=== PATIENT | female | born 1985 ===

== ENCOUNTER 2016-10-22 19:34 | Emergency (ER) | payer MEDICAID ==
[2016-10-22 19:36] VITALS: BMI 23.0
[2016-10-22 19:56] VITALS: BP 107/68; PULSE 61; RESP 17; TEMP 97.9; O2SAT 100
[2016-10-22] MEDS ORDERED: Lactated Ringer's 1,000 ML in Lactated Ringer's 1,000 ML IV STA (20:40)
[2016-10-22 21:10] LABS: BASO # 0.1 K/uL (0.0-0.2); BASO % 0.9 % (0.0-2.0); EOS # 0.1 K/uL (0.0-0.7); EOS % 1.3 % (0.0-4.0); HEMATOCRIT 37.3 % (34.0-47.0); LYMPH # 2.6 K/uL (1.0-4.3); LYMPH % 26.2 % (20.0-40.0); MEAN CELL VOLUME 87.3 fl (81.0-99.0); MEAN CORPUSCULAR HGB CONC 33.2 g/dL (33.0-37.0); MEAN PLATELET VOLUME 8.8 fl (7.2-11.7); MONO # 0.6 K/uL (0.0-0.8); MONO % 6.4 % (0.0-10.0); NEUT # 6.6 K/uL (1.8-7.0); NEUT % 65.2 % (50.0-75.0); NRBC % 0.1 % (0.0-0.0); RED CELL DISTRIBUTION WIDTH 13.7 % (11.5-14.5); WHITE BLOOD COUNT 10.1 K/uL (4.8-10.8)
--- NOTE | 2016-10-22 21:30 | ED PDOC ---
HPI: Female Pain Time Seen by Provider: 10/22/16 20:03 Chief Complaint (Nursing): Abdominal Pain Chief Complaint (Provider): Dysuria/Frequency History Per: Patient History/Exam Limitations: no limitations Onset/Duration Of Symptoms: Days (x2) Current Symptoms Are (Timing): Still Present Severity: Moderate Associated Symptoms: Nausea, Other ("hot sweats", suprapubic and flank pain ( mild); no vomiting, diarrhea, vaginal discharge or bleeding) Additional Complaint(s): Emily Maravilla is a 31 year old female, with a past medical history inclusive of previous pyelonephritis and subsequent autoimmune hepatitis (requiring hospital admission), who presents to the ED on 10/22/16 for the evaluation of both dysuria and urinary frequency that she has experienced x2 days. Associated episodes of "hot sweats" and nausea also reported in addition to some suprapubic and b/l flank pain (mild). Denies outright fever, vomiting, diarrhea , vaginal discharge or bleeding as well as other current infections (cough/ rhinorrhea/rash). Has taken no medications for symptom relief prior to arrival. Of note, patient reports that her current symptoms are similar to those experienced at the time she had been diagnosed with pyelonephritis. PMD: Alexa Reina Past Medical History Reviewed: Historical Data, Nursing Documentation, Vital Signs Vital Signs: Last Vital Signs Temp 97.9 F 10/22/16 19:53 Pulse 61 10/22/16 19:53 Resp 17 10/22/16 19:53 BP 107/68 10/22/16 19:53 Pulse Ox 100 10/22/16 19:53 - Medical History PMH: Asthma (per old chart but pt denies), Gall Bladder Disease, Hepatitis ( autoimmune s/p pyelonephritis) Denies: Chronic Kidney Disease Other PMH: pyelonephritis - Surgical History Surgical History: (x2) - Family History Family History: States: Unknown Family Hx - Social History Current smoker - smoking cessation education provided: No Alcohol: None Drugs: Denies - Home Medications Home Medications: Ambulatory Orders Medication Instructions Recorded Cephalexin [cephalexin] 500 mg PO BID #14 cap 07/15/16 traMADol [Ultram] 50 mg PO Q6H PRN #15 tab 08/02/16 Ciprofloxacin HCl [Cipro] 250 mg PO BID #20 tab 10/22/16 Famotidine [Pepcid] 40 mg PO DAILY PRN #30 tab 10/22/16 Naproxen [Naprosyn] 1 tab PO BID PRN #60 tab 10/22/16 Ondansetron [Zofran] 4 mg PO Q8H PRN #30 tab 10/22/16 - Allergies Allergies/Adverse Reactions: Allergies Allergy/AdvReac Type Severity Reaction Status Date / Time No Known Allergies Allergy Verified 08/01/16 20:57 Review of Systems ROS Statement: Except As Marked, All Systems Reviewed And Found Negative Constitutional: Positive for: Sweats. Negative for: Fever ENT: Negative for: Nose Discharge Respiratory: Negative for: Cough Gastrointestinal: Positive for: Nausea, Abdominal Pain (suprapubic, b/l flank). Negative for: Vomiting, Diarrhea Genitourinary Female: Positive for: Dysuria, Frequency. Negative for: Vaginal Discharge, Vaginal Bleeding Skin: Negative for: Rash Physical Exam - Reviewed Nursing Documentation Reviewed: Yes Vital Signs Reviewed: Yes - Physical Exam Appears: Positive for: Well (well appearing), Non-toxic, In Acute Distress ( mild painful) Head Exam: Positive for: ATRAUMATIC, NORMOCEPHALIC Skin: Positive for: Normal Color, Warm, Dry Cardiovascular/Chest: Positive for: Regular Rate, Rhythm. Negative for: Murmur Respiratory: Positive for: Normal Breath Sounds. Negative for: Respiratory Distress Gastrointestinal/Abdominal: Positive for: Soft, Tenderness (mild suprapubic). Negative for: Mass, Guarding, Rebound Back: Positive for: Normal Inspection. Negative for: L CVA Tenderness, R CVA Tenderness Neurologic/Psych: Positive for: Alert, Oriented - Laboratory Results Result Diagrams: 10/22/16 20:55 10/22/16 20:55 - ECG O2 Sat by Pulse Oximetry: 100 (RA) Pulse Ox Interpretation: Normal Medical Decision Making Medical Decision Makin:03 Initial Impression: UTI Other differential diagnoses include but are not limited to cystitis, pyelonephritis Initial Plan: * US Abdomen, Complete * Labs * Lipase * PTT * PT * Upreg * Udip * Lactated Ringer's 1000ml at 1000mls/hr * Pepcid 20mg IVP * Toradol 30mg IV * Zofran 8mg IV * Reevaluation Udip is (+) for both blood and leukocyte esterase. Will send sample to lab for both urinalysis and culture. Reviewed previous charts. Pt has urine cultures with E Coli susceptible to all antibiotics. EXAM: US Abdomen Complete. CLINICAL HISTORY: 31 years old, female; Pain; Abdominal pain; Generalized; Additional info: Flank pain and h/o hepatitis TECHNIQUE: Real-time ultrasound of the abdomen (complete) with image documentation. EXAM DATE/TIME: 10/22/2016 9:29 PM COMPARISON: There are no prior studies for comparison. FINDINGS: Liver: Liver is unremarkable.There is hepatopedal flow in the main portal vein. Gallbladder: Gallbladder is incompletely distended with no stones, sludge or wall thickening.. Common bile duct: Common bile duct measures 2.6 mm in diameter. Pancreas: Pancreas is partially obscured by bowel gas. Visualized portion is unremarkable. Kidneys: Kidneys are unremarkable. Spleen: Spleen is unremarkable. Aorta: Visualized portions of the aorta and inferior vena cava are unremarkable. Inferior vena cava: See above. IMPRESSION: Limited evaluation of the gallbladder secondary to nonfasting complete distention; no acute solid visceral abnormality Patient was not tender over the gallbladder Thank you for allowing us to participate in the care of your patient. Dictated and Authenticated by: Sherrell Sparks MD 10/22/2016 11:50 PM Eastern Time ([place] & [place]) On reeval pt improved. DW pt findings and plan of care. Mandatory 48 hour follow up to reevaluate for improvement. Scribe Attestation: Documented by Marleen Hardy, acting as a scribe for Gely Munson MD. Provider Scribe Attestation: All medical record entries made by the Scribe were at my direction and personally dictated by me. I have reviewed the chart and agree that the record accurately reflects my personal performance of the history, physical exam, medical decision making, and the department course for this patient. I have also personally directed, reviewed, and agree with the discharge instructions and disposition. Disposition - Clinical Impression Clinical Impression: Cystitis Counseled Patient/Family Regarding: Studies Performed, Diagnosis, Need For Followup, Rx Given - Disposition Disposition: Routine/Home Disposition Time: 23:56 Condition: IMPROVED Additional Instructions: DRINK PLENTY OF HYDRATING FLUIDS AND REST SEE YOUR DOCTOR IN 48 HOURS FOR REEVALUATION. RETURN TO ER FOR WORSENING SYMPTOMS. Prescriptions: Ciprofloxacin HCl [Cipro] 250 mg PO BID #20 tab Naproxen [Naprosyn] 1 tab PO BID PRN #60 tab PRN Reason: Pain Famotidine [Pepcid] 40 mg PO DAILY PRN #30 tab PRN Reason: reflux Ondansetron [Zofran] 4 mg PO Q8H PRN #30 tab PRN Reason: Nausea/Vomiting Instructions: Urinary Tract Infection in Women (ED) Forms: [facility] ED School/Work Excuse
[2016-10-22 21:38] LABS: ALB/GLOB RATIO 1.4 (1.0-2.1); ALKALINE PHOSPHATASE 95 U/L (38-126); ALT/SGPT 72 U/L (9-52); AST/SGOT 52 U/L (14-36); BILIRUBIN,TOTAL 0.3 mg/dl (0.2-1.3); BLOOD UREA NITROGEN 18 mg/dl (7-17); CALCIUM 9.3 mg/dL (8.4-10.2); CARBON DIOXIDE 24 mmol/L (22-30); CHLORIDE 105 mmol/L (98-107); GFR AFRICAN-AMERICAN > 60; GLUCOSE,RANDOM 89 mg/dL (65-105); LIPASE 118 U/L (23-300); POTASSIUM 4.1 MMOL/L (3.6-5.0); SODIUM 137 mmol/l (132-148)
[2016-10-22 21:54] LABS: RBC URINE 20 /hpf (0-3); URINE BACTERIA OCC (<OCC); URINE BILIRUBIN NEGATIVE (NEGATIVE); URINE BLOOD MODERATE (NEGATIVE); URINE COLOR YELLOW (YELLOW); URINE GLUCOSE (UA) NEG (Normal); URINE KETONE NEGATIVE (NEGATIVE); URINE LEUKOCYTE ESTERASE LARGE Leu/uL (Negative); URINE PROTEIN NEGATIVE (NEGATIVE); URINE UROBILINOGEN 0.2-1.0 mg/dL (0.2-1.0); WBC URINE 253 /hpf (0-5)
[2016-10-22 21:56] LABS: PARTIAL THROMBOPLASTIN TIME 25.4 SECONDS (23.3-32.5)
[2016-10-22] MEDS ORDERED: Ciprofloxacin 400mg/200ml D5W 200 ML IV STA (22:07)
[2016-10-22] MEDS ORDERED: Ciprofloxacin 400mg/200ml D5W 200 ML IVPB ONE (22:37)
[2016-10-22] MEDS ORDERED: DiphenhydrAMINE 50 mg/ml Inj IVP STA (22:51)
[2016-10-22] MEDS ORDERED: Promethazine 25MG/50ML NS IVPB ONE (23:15)
--- NOTE | 2016-10-22 23:50 | US ---
EXAM: US Abdomen Complete. CLINICAL HISTORY: 31 years old, female; Pain; Abdominal pain; Generalized; Additional info: Flank pain and h/o hepatitis TECHNIQUE: Real-time ultrasound of the abdomen (complete) with image documentation. EXAM DATE/TIME: 10/22/2016 9:29 PM COMPARISON: There are no prior studies for comparison. FINDINGS: Liver: Liver is unremarkable.There is hepatopedal flow in the main portal vein. Gallbladder: Gallbladder is incompletely distended with no stones, sludge or wall thickening.. Common bile duct: Common bile duct measures 2.6 mm in diameter. Pancreas: Pancreas is partially obscured by bowel gas. Visualized portion is unremarkable. Kidneys: Kidneys are unremarkable. Spleen: Spleen is unremarkable. Aorta: Visualized portions of the aorta and inferior vena cava are unremarkable. Inferior vena cava: See above. IMPRESSION: Limited evaluation of the gallbladder secondary to nonfasting complete distention; no acute solid visceral abnormality Patient was not tender over the gallbladder
== END 2016-10-23 00:33 | disposition home or self-care (01) ==
LOC: H.ER 19:34
DX: N30.90 Cystitis, unspecified without hematuria (principal); J45.909 Unspecified asthma, uncomplicated

== ENCOUNTER 2017-01-14 21:28 | Emergency (ER) | payer MEDICAID ==
[2017-01-14 21:28] VITALS: BMI 23.0
[2017-01-14 21:36] VITALS: BP 115/63; PULSE 58; RESP 16; TEMP 98.3; O2SAT 100
--- NOTE | 2017-01-14 22:12 | ED PDOC ---
HPI: Abdomen Time Seen by Provider: 01/14/17 21:54 Chief Complaint (Nursing): Abdominal Pain Chief Complaint (Provider): abdominal cramps History Per: Patient History/Exam Limitations: no limitations Quality Of Discomfort: Cramping Associated Symptoms: Nausea Additional History Per: Patient Additional Complaint(s): 31 y/o female presents for eval of lower abdominal cramps x 3 days. Associated nausea. Patient states she was due for her period 01/11/17 but it has not yet come; took a test that was negative. Denies fever, headache, vomiting , cough, congestion, changes in bowel movements, dysuria, hematuria, vaginal bleeding/discharge. Past Medical History Reviewed: Historical Data, Nursing Documentation, Vital Signs Vital Signs: Last Vital Signs Temp 98.3 F 01/14/17 21:33 Pulse 58 L 01/14/17 21:33 Resp 16 01/14/17 21:33 BP 115/63 01/14/17 21:33 Pulse Ox 100 01/14/17 23:45 - Medical History PMH: Asthma (per old chart but pt denies), Gall Bladder Disease, Hepatitis ( autoimmune s/p pyelonephritis) Denies: Chronic Kidney Disease - Surgical History Surgical History: (x2) - Family History Family History: States: Unknown Family Hx - Home Medications Home Medications: Ambulatory Orders Medication Instructions Recorded Cephalexin [cephalexin] 500 mg PO BID #14 cap 07/15/16 traMADol [Ultram] 50 mg PO Q6H PRN #15 tab 08/02/16 Ciprofloxacin HCl [Cipro] 250 mg PO BID #20 tab 10/22/16 Famotidine [Pepcid] 40 mg PO DAILY PRN #30 tab 10/22/16 Naproxen [Naprosyn] 1 tab PO BID PRN #60 tab 10/22/16 Ondansetron [Zofran] 4 mg PO Q8H PRN #30 tab 10/22/16 Naproxen [Naprosyn] 500 mg PO Q12 PRN #20 tablet 01/15/17 - Allergies Allergies/Adverse Reactions: Allergies Allergy/AdvReac Type Severity Reaction Status Date / Time No Known Allergies Allergy Verified 01/14/17 21:33 Review of Systems ROS Statement: Except As Marked, All Systems Reviewed And Found Negative Gastrointestinal: Positive for: Nausea, Abdominal Pain Physical Exam - Reviewed Nursing Documentation Reviewed: Yes Vital Signs Reviewed: Yes - Physical Exam Appears: Positive for: Well, Non-toxic, No Acute Distress Head Exam: Positive for: ATRAUMATIC, NORMAL INSPECTION, NORMOCEPHALIC Skin: Positive for: Normal Color Eye Exam: Positive for: Normal appearance ENT: Positive for: Normal ENT Inspection Cardiovascular/Chest: Positive for: Regular Rate, Rhythm Respiratory: Positive for: Normal Breath Sounds Gastrointestinal/Abdominal: Positive for: Bowel Sounds, Soft, Tenderness ( diffuse lower abdomen discomfort to palpate; negative obturator/psoa). Negative for: Distended, Guarding, Rebound Back: Positive for: Normal Inspection Extremity: Positive for: Normal ROM Neurologic/Psych: Positive for: Alert, Oriented - Laboratory Results Result Diagrams: 01/14/17 22:40 01/14/17 22:40 Urine POC: Negative Urine dip results: Negative for: Leukocyte Esterase, Blood, Nitrate, Ketones - ECG O2 Sat by Pulse Oximetry: 100 - Progress ED Course And Treament: labs, urine, IV toradol, IV fluids Patient educated on findings, discharged with rx naproxen. 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 Disposition - Clinical Impression Clinical Impression: Abdominal cramps - Patient ED Disposition Is Patient to be Admitted: No Counseled Patient/Family Regarding: Studies Performed, Diagnosis, Need For Followup, Rx Given - Disposition Disposition: Routine/Home Disposition Time: 00:19 Condition: IMPROVED Prescriptions: Naproxen [Naprosyn] 500 mg PO Q12 PRN #20 tablet PRN Reason: Pain, Moderate (4-7) Instructions: Abdominal Pain (ED)
[2017-01-14 22:47] LABS: BASO # 0.1 K/uL (0.0-0.2); BASO % 0.8 % (0.0-2.0); EOS # 0.1 K/uL (0.0-0.7); EOS % 1.2 % (0.0-4.0); LYMPH # 2.8 K/uL (1.0-4.3); LYMPH % 33.5 % (20.0-40.0); MEAN CELL VOLUME 86.8 fl (81.0-99.0); MEAN CORPUSCULAR HEMOGLOBIN 28.7 pg (27.0-31.0); MEAN PLATELET VOLUME 8.6 fl (7.2-11.7); MONO # 0.4 K/uL (0.0-0.8); MONO % 5.3 % (0.0-10.0); NEUT # 4.9 K/uL (1.8-7.0); NEUT % 59.2 % (50.0-75.0); RED CELL DISTRIBUTION WIDTH 13.4 % (11.5-14.5); WHITE BLOOD COUNT 8.3 K/uL (4.8-10.8)
[2017-01-14 22:57] LABS: ALB/GLOB RATIO 1.4 (1.0-2.1); ALKALINE PHOSPHATASE 63 U/L (38-126); ALT/SGPT 67 U/L (9-52); AST/SGOT 35 U/L (14-36); BILIRUBIN,TOTAL 0.3 mg/dl (0.2-1.3); BLOOD UREA NITROGEN 19 mg/dl (7-17); CALCIUM 9.2 mg/dL (8.4-10.2); CARBON DIOXIDE 24 mmol/L (22-30); CHLORIDE 105 mmol/L (98-107); GFR AFRICAN-AMERICAN > 60; GLUCOSE,RANDOM 85 mg/dL (65-105); LIPASE 110 U/L (23-300); POTASSIUM 3.8 MMOL/L (3.6-5.0); SODIUM 138 mmol/l (132-148); TOTAL PROTEIN 7.1 G/DL (6.3-8.2)
[2017-01-15 00:19] LABS: RBC URINE < 1 /hpf (0-3); URINE BACTERIA RARE (<OCC); URINE BILIRUBIN NEGATIVE (NEGATIVE); URINE BLOOD NEGATIVE (NEGATIVE); URINE COLOR COLORLESS (YELLOW); URINE GLUCOSE (UA) NEG (Normal); URINE KETONE NEGATIVE (NEGATIVE); URINE LEUKOCYTE ESTERASE NEG Leu/uL (Negative); URINE PROTEIN NEGATIVE (NEGATIVE); URINE UROBILINOGEN 0.2-1.0 mg/dL (0.2-1.0); WBC URINE < 1 /hpf (0-5)
== END 2017-01-15 00:37 | disposition home or self-care (01) ==
LOC: H.ER 21:28
DX: R10.9 Unspecified abdominal pain (principal); R11.0 Nausea

== ENCOUNTER 2017-04-27 10:00 | Emergency (ER) | payer MEDICAID ==
[2017-04-27 10:05] VITALS: BP 111/57; PULSE 69; RESP 16; TEMP 97.6; O2SAT 100
[2017-04-27 10:06] VITALS: BMI 24.4
[2017-04-27] MEDS ORDERED: Sodium Chloride 0.9% 1,000 ML IV STA (10:21)
--- NOTE | 2017-04-27 10:27 | ED PDOC ---
HPI: Female Pain Time Seen by Provider: 04/27/17 10:10 Chief Complaint (Nursing): Female Genitourinary Chief Complaint (Provider): Female Genitourinary History Per: Patient History/Exam Limitations: no limitations Onset/Duration Of Symptoms: Days Current Symptoms Are (Timing): Still Present Additional Complaint(s): 32 y/o female, 12 weeks (G 4 P 2), who presents to the emergency department with a complaint of pelvic cramping since last night associated with blood in urine since this morning. Patient states before going to the bathroom she saw a pinkish liquid on underwear. Also complaining of multiple headaches without taking medications for the relief of pain. Denies taking pills , painful urination, fever, chills, nausea, or vomiting. Of note, patient went to the clinic and was told she is expecting twins but has an appointment with her TERMINATION CLERK on 05/05/2017 to reconfirm. Past Medical History Reviewed: Historical Data, Nursing Documentation, Vital Signs Vital Signs: Last Vital Signs Temp 97.6 F 04/27/17 10:04 Pulse 69 04/27/17 10:04 Resp 16 04/27/17 10:04 BP 111/57 L 04/27/17 10:04 Pulse Ox 100 04/27/17 10:04 - Medical History PMH: Asthma (per old chart but pt denies), Gall Bladder Disease, Hepatitis ( autoimmune s/p pyelonephritis) Denies: Chronic Kidney Disease - Surgical History Surgical History: (x2) - Family History Family History: States: Unknown Family Hx - Social History Current smoker - smoking cessation education provided: No Alcohol: None Drugs: Denies - Home Medications Home Medications: Ambulatory Orders Medication Instructions Recorded Cephalexin [cephalexin] 500 mg PO BID #14 cap 07/15/16 traMADol [Ultram] 50 mg PO Q6H PRN #15 tab 08/02/16 Ciprofloxacin HCl [Cipro] 250 mg PO BID #20 tab 10/22/16 Famotidine [Pepcid] 40 mg PO DAILY PRN #30 tab 10/22/16 Naproxen [Naprosyn] 1 tab PO BID PRN #60 tab 10/22/16 Ondansetron [Zofran] 4 mg PO Q8H PRN #30 tab 10/22/16 Naproxen [Naprosyn] 500 mg PO Q12 PRN #20 tablet 01/15/17 21/Iron Fu/Folic Acid 1 each PO DAILY #30 tablet 04/27/17 [ Complete Caplet] - Allergies Allergies/Adverse Reactions: Allergies Allergy/AdvReac Type Severity Reaction Status Date / Time No Known Allergies Allergy Verified 01/14/17 21:33 Review of Systems ROS Statement: Except As Marked, All Systems Reviewed And Found Negative Constitutional: Negative for: Fever, Chills Gastrointestinal: Negative for: Nausea, Vomiting Genitourinary Female: Positive for: Hematuria, Pelvic Pain (Cramping). Negative for: Dysuria Neurological: Positive for: Headache Physical Exam - Reviewed Nursing Documentation Reviewed: Yes Vital Signs Reviewed: Yes - Physical Exam Appears: Positive for: Non-toxic, No Acute Distress Head Exam: Positive for: ATRAUMATIC, NORMAL INSPECTION, NORMOCEPHALIC Skin: Positive for: Normal Color, Warm, Dry Eye Exam: Positive for: Normal appearance Neck: Positive for: Normal, Supple Pelvic Exam: Positive for: External Exam Normal (Water Pollution Scientist: Antonia. Normal external genitalia.), No Cerv. Motion Tender ( Cervix is closed), Other (Mild tenderness to the right side). Negative for: Active Bleeding Neurologic/Psych: Positive for: Alert, Oriented (x3) - Laboratory Results Result Diagrams: 04/27/17 10:35 04/27/17 10:35 - ECG O2 Sat by Pulse Oximetry: 100 (RA) Pulse Ox Interpretation: Normal Medical Decision Making Medical Decision Making: Time: 10:19 Initial Impression: Abdominal cramping in known setting of 12-week Initial Plan: --Type and Screen --BMP -- Serum --CBC w/ diff --PTT and Prothrombin --Sodium Chloride 1L IV --Transvaginal US --Reevaluation Scribe Attestation: Documented by Luz Maria Balderas, acting as a scribe for Loretta Richard MD. Provider Scribe Attestation: All medical record entries made by the Scribe were at my direction and personally dictated by me. I have reviewed the chart and agree that the record accurately reflects my personal performance of the history, physical exam, medical decision making, and the department course for this patient. I have also personally directed, reviewed, and agree with the discharge instructions and disposition. Disposition - Clinical Impression Clinical Impression: Threatened miscarriage - Patient ED Disposition Is Patient to be Admitted: No Doctor Will See Patient In The: Office Counseled Patient/Family Regarding: Diagnosis, Need For Followup, Rx Given - Disposition [facility]] [facility] [Outside] [facility] [place] [Outside] Disposition: Routine/Home Disposition Time: 13:30 Condition: STABLE Prescriptions: 21/Iron Fu/Folic Acid [ Complete Caplet] 1 each PO DAILY #30 tablet Instructions: Threatened Miscarriage (ED) Forms: [facility] (Kittitian) Print Language: KHMER - POA Present On Arrival: None
[2017-04-27 10:59] LABS: BASO % 0.5 % (0.0-2.0); EOS % 0.5 % (0.0-4.0); HEMATOCRIT 35.4 % (34.0-47.0); LYMPH # 1.2 K/uL (1.0-4.3); LYMPH % 15.5 % (20.0-40.0); MEAN CELL VOLUME 87.6 fl (81.0-99.0); MEAN CORPUSCULAR HEMOGLOBIN 29.3 pg (27.0-31.0); MEAN CORPUSCULAR HGB CONC 33.4 g/dL (33.0-37.0); MEAN PLATELET VOLUME 8.7 fl (7.2-11.7); MONO # 0.3 K/uL (0.0-0.8); NEUT # 6.2 K/uL (1.8-7.0); NEUT % 79.5 % (50.0-75.0); NRBC % 0.1 % (0.0-0.0); RED CELL DISTRIBUTION WIDTH 13.3 % (11.5-14.5); WHITE BLOOD COUNT 7.8 K/uL (4.8-10.8)
[2017-04-27 11:32] LABS: PARTIAL THROMBOPLASTIN TIME 26.3 Seconds (25.6-37.1)
[2017-04-27 11:40] LABS: BLOOD UREA NITROGEN 6 mg/dl (7-17); CARBON DIOXIDE 20 mmol/L (22-30); CHLORIDE 109 mmol/L (98-107); GFR AFRICAN-AMERICAN > 60; GLUCOSE,RANDOM 81 mg/dL (65-105); POTASSIUM 3.6 MMOL/L (3.6-5.0); SODIUM 138 mmol/l (132-148)
--- NOTE | 2017-04-27 15:03 | US ---
HISTORY: vaginal bleeding, COMPARISON: None available. TECHNIQUE: Transvaginal ultrasound examination of the pelvis was obtained. FINDINGS: UTERUS: There is a twin in the uterus. There is a trace amount of fluid seen at the uterine cervix. The cervix measures 5.3 centimeter. ENDOMETRIUM: Twin is noted. The heart activity of both twins is noted. Ultrasound estimation of the A gestational age is 12 weeks 1 day +/- 0 weeks 6 days. The ultrasound estimation of the B gestational age is 13 weeks 0 day +/- 0 weeks 6 days. CERVIX: No cervical abnormality identified. RIGHT OVARY: Was not visualized LEFT OVARY: Was not visualized FREE FLUID: No significant free fluid noted. OTHER FINDINGS: None. IMPRESSION: Twin intrauterine live . Estimated gestational age is 13 weeks. Trace amount of fluid seen in the uterine cervix.
== END 2017-04-27 14:37 | disposition home or self-care (01) ==
LOC: H.ER 10:00
DX: O20.0 Threatened abortion (principal); Z3A.13 13 weeks gestation of pregnancy; J45.909 Unspecified asthma, uncomplicated
CPT/HCPCS: 76817; 80048; 84702; 85025; 85610; 85730; 86850; 86900; 96360; 99284; J7040

== ENCOUNTER 2017-06-14 21:37 | Emergency (ER) | payer MEDICAID ==
[2017-06-14 21:37] VITALS: BMI 24.4
[2017-06-14 21:52] VITALS: BP 105/54; PULSE 80; RESP 18; TEMP 99.2; O2SAT 99
--- NOTE | 2017-06-14 22:13 | ED PDOC ---
HPI: CCC, URI, Sore Throat Time Seen by Provider: 06/14/17 21:45 Chief Complaint (Nursing): Cough, Cold, Congestion Chief Complaint (Provider): Cough, Cold, Congestion History Per: Patient History/Exam Limitations: no limitations Onset/Duration Of Symptoms: Days (x2) Current Symptoms Are (Timing): Still Present Additional Complaint(s): Emily Maravilla is a 32 year old female presenting to the ED for an evaluation of a cold occurring for 2 days prior to arrival. The patient states associated runny nose, watery eyes, sore throat, and body aches. She has not taken any medications for her symptoms. PMD: Yohana Vergara MD Past Medical History Reviewed: Historical Data, Nursing Documentation, Vital Signs Vital Signs: Last Vital Signs Temp 99.2 F 06/14/17 21:46 Pulse 80 06/14/17 21:46 Resp 18 06/14/17 21:46 BP 105/54 L 06/14/17 21:46 Pulse Ox 99 06/14/17 22:14 - Medical History PMH: Gall Bladder Disease, Hepatitis (autoimmune s/p pyelonephritis) Denies: Asthma, Chronic Kidney Disease - Surgical History Surgical History: (x2) - Family History Family History: States: Unknown Family Hx - Social History Current smoker - smoking cessation education provided: No Ex-Smoker (has not smoked in the last 12 months): No Alcohol: None Drugs: Denies - Home Medications Home Medications: Ambulatory Orders Medication Instructions Recorded Cephalexin [cephalexin] 500 mg PO BID #14 cap 07/15/16 traMADol [Ultram] 50 mg PO Q6H PRN #15 tab 08/02/16 Ciprofloxacin HCl [Cipro] 250 mg PO BID #20 tab 10/22/16 Famotidine [Pepcid] 40 mg PO DAILY PRN #30 tab 10/22/16 Naproxen [Naprosyn] 1 tab PO BID PRN #60 tab 10/22/16 Ondansetron [Zofran] 4 mg PO Q8H PRN #30 tab 10/22/16 Naproxen [Naprosyn] 500 mg PO Q12 PRN #20 tablet 01/15/17 21/Iron Fu/Folic Acid 1 each PO DAILY #30 tablet 04/27/17 [ Complete Caplet] - Allergies Allergies/Adverse Reactions: Allergies Allergy/AdvReac Type Severity Reaction Status Date / Time No Known Allergies Allergy Verified 01/14/17 21:33 Review of Systems ROS Statement: Except As Marked, All Systems Reviewed And Found Negative Constitutional: Positive for: Other (body aches) Eyes: Positive for: Other (watery eyes) ENT: Positive for: Nose Discharge, Nose Congestion, Throat Pain Physical Exam - Reviewed Nursing Documentation Reviewed: Yes Vital Signs Reviewed: Yes - Physical Exam Appears: Positive for: Non-toxic, No Acute Distress Head Exam: Positive for: ATRAUMATIC, NORMOCEPHALIC Skin: Positive for: Normal Color, Warm, Dry Eye Exam: Positive for: Normal appearance, EOMI ENT: Positive for: Normal ENT Inspection, Pharynx Is (clear), TM Is/Are (normal bilaterally) Neck: Positive for: Normal, Painless ROM Cardiovascular/Chest: Positive for: Regular Rate, Rhythm, Chest Non Tender Respiratory: Positive for: Normal Breath Sounds. Negative for: Respiratory Distress Gastrointestinal/Abdominal: Positive for: Normal Exam, Soft. Negative for: Tenderness Back: Positive for: Normal Inspection Extremity: Positive for: Normal ROM Neurologic/Psych: Positive for: Alert, Oriented (x3). Negative for: Motor/ Sensory Deficits - ECG O2 Sat by Pulse Oximetry: 99 (RA) Pulse Ox Interpretation: Normal Medical Decision Making Medical Decision Making: Time: 21:45 Impression: URI Plan: Will give pt Tylenol and discussed with patient to take cough drops as needed. Patient agreed to treatment plan. Scribe Attestation: Documented by Maritza Loomis, acting as a scribe for Gely Christiansen PA-C. Provider Scribe Attestation: All medical record entries made by the Scribe were at my direction and personally dictated by me. I have reviewed the chart and agree that the record accurately reflects my personal performance of the history, physical exam, medical decision making, and the department course for this patient. I have also personally directed, reviewed, and agree with the discharge instructions and disposition. Disposition - Clinical Impression Clinical Impression: Upper respiratory infection - Patient ED Disposition Is Patient to be Admitted: No - Disposition Disposition: Routine/Home Disposition Time: 22:29 Condition: STABLE Instructions: Upper Respiratory Infection (ED) Forms: [facility] (Tunisian) - POA Present On Arrival: None
== END 2017-06-14 23:39 | disposition home or self-care (01) ==
LOC: H.ER 21:37
DX: J06.9 Acute upper respiratory infection, unspecified (principal)

== ENCOUNTER 2018-02-22 22:58 | Emergency (ER) | payer MEDICAID ==
[2018-02-22 22:58] VITALS: BMI 24.4
[2018-02-22 23:04] VITALS: BP 106/43; PULSE 62; RESP 16; TEMP 98.2; O2SAT 97
[2018-02-22] MEDS ORDERED: Sodium Chloride 0.9% 1,000 ML IV STA (23:25)
--- NOTE | 2018-02-22 23:36 | ED PDOC ---
HPI: Abdomen <Justus Bush - Last Filed: 02/23/18 05:17> Chief Complaint (Provider): RUQ abdominal pain History Per: Patient History/Exam Limitations: no limitations Onset/Duration Of Symptoms: Hrs Current Symptoms Are (Timing): Still Present Severity: Moderate Location Of Pain/Discomfort: RUQ Quality Of Discomfort: Sharp, Cramping Associated Symptoms: Nausea Alleviating Factors: None Last Bowel Movement: Today Last Menstral Period: 1 week ago : 4 Para: 3 Miscarriage: 1 <Parmjit Odonnell - Last Filed: 02/23/18 05:20> Time Seen by Provider: 02/22/18 23:05 Chief Complaint (Nursing): Abdominal Pain Additional Complaint(s): CC: abdominal pain HPI: 32 y/o female who presents to the ED with c/o epigastric and RUQ abdominal pain that started yesterday after having dinner, the pain is sharp, intermittent , radiates to the back and right shoulder, is accompanied by nausea, but denies vomiting, patient states she was able to tolerate eating food today but very little becuase of the pain and the nausea, she states the pain increased now in the evening and she decied to come to the ED. She denies vomiting, diarrhea, fever,chills, HUITRON, dysuria, chest pain, or SOB. Patient states she has PMHx of liver and gall bladder problems in the past, but does not remenber the Dx, also she has hx of pyelonephritis, denies any hx of other chronic disease. PMD:Monty Monsivais (Parmjit Odonnell) Supervising Attending Note - Attestation: I have personally seen and examined this patient.: Yes I have fully participated in the care of the patient.: Yes I have reviewed all pertinent clinical information: Yes <Justus Bush - Last Filed: 02/23/18 05:17> <Parmjit Odonnell - Last Filed: 02/23/18 05:20> - Notes: Notes:: Patient presenting with epigastric pain (Justus Bush) Past Medical History <Justus Bush - Last Filed: 02/23/18 05:17> Reviewed: Historical Data, Nursing Documentation, Vital Signs - Medical History PMH: No Chronic Diseases, Gall Bladder Disease, Hepatitis (autoimmune s/p pyelonephritis) Denies: Asthma, Chronic Kidney Disease - Surgical History Surgical History: (x2) - Family History Family History: States: Unknown Family Hx - Living Arrangements Living Arrangements: With Family - Social History Current smoker - smoking cessation education provided: No Ex-Smoker (has not smoked in the last 12 months): No Alcohol: None Drugs: Denies <Parmjit Odonnell - Last Filed: 02/23/18 05:20> Vital Signs: Last Vital Signs Temp 98.2 F 02/22/18 23:02 Pulse 62 02/22/18 23:02 Resp 16 02/22/18 23:02 BP 106/43 L 02/22/18 23:02 Pulse Ox 97 02/23/18 05:17 - Home Medications Home Medications: Ambulatory Orders Medication Instructions Recorded Cephalexin [cephalexin] 500 mg PO BID #14 cap 07/15/16 traMADol [Ultram] 50 mg PO Q6H PRN #15 tab 08/02/16 Ciprofloxacin HCl [Cipro] 250 mg PO BID #20 tab 10/22/16 Famotidine [Pepcid] 40 mg PO DAILY PRN #30 tab 10/22/16 Naproxen [Naprosyn] 1 tab PO BID PRN #60 tab 10/22/16 Ondansetron [Zofran] 4 mg PO Q8H PRN #30 tab 10/22/16 Naproxen [Naprosyn] 500 mg PO Q12 PRN #20 tablet 01/15/17 21/Iron Fu/Folic Acid 1 each PO DAILY #30 tablet 04/27/17 [ Complete Caplet] Dicyclomine [Bentyl] 20 mg PO BID #30 tab 02/23/18 Omeprazole 20 mg PO DAILY #30 capsule. 02/23/18 - Allergies Allergies/Adverse Reactions: Allergies Allergy/AdvReac Type Severity Reaction Status Date / Time No Known Allergies Allergy Verified 01/14/17 21:33 Review of Systems ROS Statement: Except As Marked, All Systems Reviewed And Found Negative Gastrointestinal: Positive for: Nausea, Abdominal Pain <Parmjit Odonnell - Last Filed: 02/23/18 05:20> Physical Exam - Reviewed Nursing Documentation Reviewed: Yes Vital Signs Reviewed: Yes - Physical Exam Appears: Positive for: No Acute Distress Head Exam: Positive for: ATRAUMATIC, NORMOCEPHALIC Skin: Positive for: Normal Color, Warm. Negative for: Jaundice Eye Exam: Positive for: Normal appearance, EOMI, PERRL Neck: Positive for: Painless ROM, Supple Cardiovascular/Chest: Positive for: Regular Rate, Rhythm. Negative for: Murmur Respiratory: Positive for: Normal Breath Sounds. Negative for: Wheezing Gastrointestinal/Abdominal: Positive for: Bowel Sounds, Soft, Tenderness (to palpation of RUQ, with positive Page sign). Negative for: Mass Back: Negative for: L CVA Tenderness, R CVA Tenderness Extremity: Negative for: Pedal Edema Neurologic/Psych: Positive for: Alert, Oriented <Parmjit Odonnell - Last Filed: 02/23/18 05:20> - Laboratory Results Result Diagrams: 02/23/18 00:33 02/23/18 00:33 <Justus Bush - Last Filed: 02/23/18 05:17> - Laboratory Results Result Diagrams: 02/23/18 00:33 02/23/18 00:33 - ECG O2 Sat by Pulse Oximetry: 97 <Parmjit Odonnell - Last Filed: 02/23/18 05:20> Medical Decision Making <Justus Bush - Last Filed: 02/23/18 05:17> <Parmjit Odonnell - Last Filed: 02/23/18 05:20> Medical Decision Making: -Patient evaluated, BW done CBC, BMP unremarkable, CT of abdomen and pelvis with Oral preparation and IV contrast performed and reported positive for Gastritis. -Patient condition improved after Tx in ED, decision is made to D/C patient. -Instructions given to patient to f/u in 1 to 2 days with PCP, avoid spicy foods , fatty foods, alcoholic beverages. -Patient instructed to return to the ED if pain persist. (Parmjit Odonnell) Disposition <Justus Bush - Last Filed: 02/23/18 05:17> - Disposition Disposition Time: 05:00 <Parmjit Odonnell - Last Filed: 02/23/18 05:20> - Clinical Impression Clinical Impression: Gastritis - Disposition Referrals: Monty Graves MD [Family Provider] - Condition: IMPROVED Prescriptions: Dicyclomine [Bentyl] 20 mg PO BID #30 tab Omeprazole 20 mg PO DAILY #30 capsule.dr Instructions: Gastritis Forms: [facility] (Mohawk) Print Language: CUBAN
[2018-02-23 00:39] LABS: BASO # 0.1 K/uL (0.0-0.2); BASO % 1.1 % (0.0-2.0); EOS # 0.2 K/uL (0.0-0.7); EOS % 2.7 % (0.0-4.0); HEMOGLOBIN 13.6 g/dL (12.0-16.0); LYMPH # 2.9 K/uL (1.0-4.3); LYMPH % 47.2 % (20.0-40.0); MEAN CELL VOLUME 85.3 fl (81.0-99.0); MEAN CORPUSCULAR HEMOGLOBIN 30.1 pg (27.0-31.0); MEAN CORPUSCULAR HGB CONC 35.2 g/dL (33.0-37.0); MEAN PLATELET VOLUME 8.9 fl (7.2-11.7); MONO # 0.4 K/uL (0.0-0.8); MONO % 6.1 % (0.0-10.0); NEUT # 2.6 K/uL (1.8-7.0); NEUT % 42.9 % (50.0-75.0); NRBC % 0.2 % (0.0-0.0); RBC 4.52 Mil/uL (3.80-5.20); RED CELL DISTRIBUTION WIDTH 14.8 % (11.5-14.5); WHITE BLOOD COUNT 6.1 K/uL (4.8-10.8)
[2018-02-23 00:44] LABS: ALB/GLOB RATIO 1.5 (1.0-2.1); ALBUMIN 4.6 g/dL (3.5-5.0); ALT/SGPT 49 U/L (9-52); AST/SGOT 45 U/L (14-36); BILIRUBIN,DIRECT 0.2 mg/ml (0.0-0.4); BLOOD UREA NITROGEN 15 mg/dl (7-17); GFR AFRICAN-AMERICAN > 60; GFR NON-AFRICAN AMERICAN > 60; LIPASE 186 U/L (23-300)
[2018-02-23 00:59] LABS: SQUAMOUS EPITHIAL 6 /hpf (0-5); URINE AMORPHOUS SEDIMENT RARE /ul (<OCC); URINE BACTERIA RARE (<OCC); URINE BILIRUBIN NEGATIVE (NEGATIVE); URINE BLOOD NEGATIVE (NEGATIVE); URINE CLARITY TURBID (Clear); URINE COLOR YELLOW (YELLOW); URINE GLUCOSE (UA) NEG (Normal); URINE LEUKOCYTE ESTERASE NEG Leu/uL (Negative); URINE PROTEIN 30 mg/dL (NEGATIVE); URINE UROBILINOGEN 0.2-1.0 mg/dL (0.2-1.0)
[2018-02-23] MEDS ORDERED: Iohexol 300 100 ML IJ ONE (01:29)
[2018-02-23] MEDS ORDERED: Sodium Chloride 0.9% 50 ML IV ONE (01:29)
--- NOTE | 2018-02-23 13:20 | CT ---
Date of service: 02/23/2018 PROCEDURE: CT Abdomen and Pelvis without intravenous contrast HISTORY: RUQ pain COMPARISON: None. TECHNIQUE: Technique. Contrast dose: Radiation dose: Total exam DLP = mGy-cm. This CT exam was performed using one or more of the following dose reduction techniques: Automated exposure control, adjustment of the mA and/or kV according to patient size, and/or use of iterative reconstruction technique. FINDINGS: LOWER THORAX: Unremarkable. LIVER: Unremarkable. No gross lesion or ductal dilatation. GALLBLADDER AND BILE DUCTS: Unremarkable. PANCREAS: Unremarkable. No gross lesion or ductal dilatation. SPLEEN: Unremarkable. ADRENALS: Unremarkable. No mass. KIDNEYS AND URETERS: Unremarkable. No hydronephrosis. No solid mass. VASCULATURE: Unremarkable. No aortic aneurysm. BOWEL: Unremarkable. No obstruction. No gross mural thickening. APPENDIX: Unremarkable. Normal appendix. PERITONEUM: Unremarkable. No free fluid. No free air. LYMPH NODES: Unremarkable. No enlarged lymph nodes. BLADDER: Unremarkable. REPRODUCTIVE: Unremarkable. BONES: No acute fracture. OTHER FINDINGS: None. IMPRESSION: Unremarkable non contrast enhanced CT of the abdomen and pelvis.
== END 2018-02-23 05:05 | disposition home or self-care (01) ==
LOC: H.ER 22:58
DX: K29.70 Gastritis, unspecified, without bleeding (principal)
CPT/HCPCS: 74177; 80048; 80076; 81003; 81025; 83690; 85025; 96374; 96375; 99283; J1885; J2270; J2405; J7030; Q9967

== ENCOUNTER 2018-07-01 07:08 | Emergency (ER) | payer MEDICAID ==
[2018-07-01 07:08] VITALS: BMI 24.4
[2018-07-01 07:17] VITALS: O2SAT 98
[2018-07-01] MEDS ORDERED: Sodium Chloride 0.9% 1,000 ML IV STA (07:47)
--- NOTE | 2018-07-01 08:20 | ED PDOC ---
HPI: Headache Time Seen by Provider: 07/01/18 07:40 Chief Complaint (Nursing): Headache Chief Complaint (Provider): Headache History Per: Patient History/Exam Limitations: no limitations Onset/Duration Of Symptoms: Days (x1) Current Symptoms Are (Timing): Still Present Quality: Tightness Associated Symptoms: Nausea. denies: Photophobia, Blurred Vision, Vomiting, Extremity Weakness Additional Complaint(s): Emily Maravilla is a 33 year old female with no past medical history who is presenting to the ED for evaluation of headache onset around 10:30 last night. Patient states that the headache started at the back of the head and neck on the left side and spread to both sides. She reports that she feels like her neck and back are tight and states that she took Tylenol at 10:30 pm at the start of the headache. Patient adds that she woke up with persistent headache and took Tylenol again at 4:30 this morning but with no relief in persistent headache, she came to the ED. Patient reports mild nausea but denies any vomiting, change in vision, weakness, numbness, fevers, sick contacts, or recent travel. PMD: none Past Medical History Reviewed: Historical Data, Nursing Documentation, Vital Signs Vital Signs: Last Vital Signs Temp 97.9 F 07/01/18 07:16 Pulse 64 07/01/18 07:16 Resp 16 07/01/18 07:16 BP 106/69 07/01/18 07:16 Pulse Ox 98 07/01/18 07:16 - Medical History PMH: Gall Bladder Disease, Hepatitis (autoimmune s/p pyelonephritis) Denies: Asthma, Chronic Kidney Disease - Surgical History Surgical History: (x2) - Family History Family History: States: Unknown Family Hx - Social History Current smoker - smoking cessation education provided: No Alcohol: None Drugs: Denies - Home Medications Home Medications: Ambulatory Orders Medication Instructions Recorded Cephalexin [cephalexin] 500 mg PO BID #14 cap 07/15/16 RX: traMADol [Ultram] 50 mg PO Q6H PRN #15 tab 08/02/16 Ciprofloxacin HCl [Cipro] 250 mg PO BID #20 tab 10/22/16 Famotidine [Pepcid] 40 mg PO DAILY PRN #30 tab 10/22/16 Ondansetron [Zofran] 4 mg PO Q8H PRN #30 tab 10/22/16 RX: Naproxen [Naprosyn] 1 tab PO BID PRN #60 tab 10/22/16 RX: Naproxen [Naprosyn] 500 mg PO Q12 PRN #20 tablet 01/15/17 21/Iron Fu/Folic Acid 1 each PO DAILY #30 tablet 04/27/17 [ Complete Caplet] Dicyclomine [Bentyl] 20 mg PO BID #30 tab 02/23/18 RX: Omeprazole 20 mg PO DAILY #30 capsule. 02/23/18 - Allergies Allergies/Adverse Reactions: Allergies Allergy/AdvReac Type Severity Reaction Status Date / Time No Known Allergies Allergy Verified 01/14/17 21:33 Review of Systems ROS Statement: Except As Marked, All Systems Reviewed And Found Negative Constitutional: Negative for: Fever Eyes: Negative for: Vision Change Gastrointestinal: Positive for: Nausea. Negative for: Vomiting Musculoskeletal: Positive for: Neck Pain (tightness) Neurological: Positive for: Headache Physical Exam - Reviewed Nursing Documentation Reviewed: Yes Vital Signs Reviewed: Yes - Physical Exam Appears: Positive for: Non-toxic, No Acute Distress Head Exam: Positive for: ATRAUMATIC, NORMAL INSPECTION, NORMOCEPHALIC Skin: Positive for: Normal Color, Warm, DRY Eye Exam: Positive for: EOMI, Normal appearance, PERRL Neck: Positive for: Normal (no spinal tenderness to palpation ), Painless ROM, Supple Cardiovascular/Chest: Positive for: Regular Rate, Rhythm. Negative for: Murmur Respiratory: Positive for: Normal Breath Sounds. Negative for: Respiratory Distress Gastrointestinal/Abdominal: Positive for: Normal Exam, Soft. Negative for: Tenderness Back: Positive for: Normal Inspection. Negative for: L CVA Tenderness, R CVA Tenderness, Vertebral Tenderness Extremity: Positive for: Normal ROM. Negative for: Pedal Edema, Deformity, Swelling Neurologic/Psych: Positive for: Alert, admittance attendant II-XII (intact), Oriented. Negative for: Motor/Sensory Deficits - ECG O2 Sat by Pulse Oximetry: 98 (RA) Pulse Ox Interpretation: Normal Medical Decision Making Medical Decision Making: Time: 7:47 A/P: most likely tension headache --No neurological deficits --Will give IV Fluids, Reglan and Toradol --Discharge if pain resolved --Consider imaging if pain doesnt resolve Scribe Attestation: Documented by, Elida Andrade acting as a scribe for Yohana Luis MD. Provider Scribe Attestation: All medical record entries made by the Scribe were at my direction and personally dictated by me. I have reviewed the chart and agree that the record accurately reflects my personal performance of the history, physical exam, medical decision making, and the department course for this patient. I have also personally directed, reviewed, and agree with the discharge instructions and disposition. [id number] --Pt with improved symptoms. Pt to be discharged homed home. Return parameters discussed. Disposition - Clinical Impression Clinical Impression: Acute headache - Disposition Disposition: Routine/Home Disposition Time: 10:52 Condition: IMPROVED Additional Instructions: Take Motrin or Tylenol for future headache. Follow up with primary medical doctor as needed. Instructions: Acute Headache (ED) Forms: [employer] (Guatemalan) Print Language: AMHARIC
[2018-07-01 10:28] VITALS: PULSE 78; RESP 19
[2018-07-01 11:19] VITALS: BP 120/78; TEMP 97
== END 2018-07-01 11:19 | disposition home or self-care (01) ==
LOC: H.ER 07:08
DX: R51 Headache (principal)
CPT/HCPCS: 81025; 96374; 96375; 99284; J1885; J2765; J7030